=== PATIENT | male | born 1970 | race African-American/Black ===

== ENCOUNTER 2019-04-06 15:37 | Inpatient (IN) | payer MEDICAID, OTHER ==
[~2019-04-06] VITALS: Ht 170.2 cm; Wt 89.8 kg
[2019-04-06 16:36] LABS: Basophils # (auto) 0 uL; Basophils % (auto) 1.3 % (0.0-2.0); Eosinophils # (auto) 0.1 uL; Eosinophils % (auto) 2.5 % (0.0-7.0); Hematocrit 40.8 % (41.0-53.0); Hemoglobin 13.5 g/dL (13.5-17.5); Lymphocytes # (auto) 1.5 uL; Lymphocytes % (auto) 45.9 % (10.0-50.0); Mean Corpuscular Hemoglobin 27.9 pg (28.0-32.0); Mean Corpuscular Hgb Conc. 33.2 g/dL (32.0-36.0); Mean Corpuscular Volume 84.1 fL (80.0-100.0); Monocytes # (auto) 0.3 uL; Neutrophils # (auto) 1.3 uL; Neutrophils % (auto) 40.3 % (37.0-80.0); Nucleated Red Blood Cells % 0.2 %; Platelet Count (auto) 163 10^3/uL (140-450); Red Blood Cells 4.85 10^6/uL (4.5-5.90); Red Cell Distribution Width 14.7 % (11.8-14.3); White Blood Cell 3.3 10^3/uL (4.4-10.8)
[2019-04-06 16:52] LABS: INR 0.96 (0.9-1.15); Partial Thromboplastin Time 27.8 sec (23.64-32.05)
[2019-04-06 16:54] LABS: Albumin 3.6 g/dL (3.4-5.0); Anion Gap 5 (5-15); Blood Urea Nitrogen 17 mg/dL (7-18); Calcium 8.4 mg/dL (8.5-10.1); Carbon Dioxide 25 mmol/L (21-32); Chloride 109 mmol/L (98-107); Glucose 87 mg/dL (74-106); Magnesium 2.4 mg/dL (1.6-2.6); Potassium 4.3 mmol/L (3.5-5.1); Sodium 139 mmol/L (136-145)
[2019-04-06 16:59] LABS: Alanine Aminotransferase 42 U/L (16-61); Alkaline Phosphatase 75 U/L (45-117); Aspartate Aminotransferase 31 U/L (15-37); BUN/Creatinine Ratio 13.2; Bilirubin, Total 0.3 mg/dL (0.2-1.0); GFR African American 76 mL/min; GFR Non-African American 63 mL/min; Total Protein 7.4 g/dL (6.4-8.2)
[2019-04-06] MEDS ORDERED: ASPirin 81 mg TAB PO ONE (17:45)
[2019-04-06] MEDS ORDERED: ONDANSETRON HCL 4 MG/2 ML VIAL IV ONE (17:45)
[2019-04-06] MEDS ORDERED: MORPHINE SULF INJ 2 MG/ML SYRINGE 1ML IV ONE (17:45)
[2019-04-06 17:48] LABS: Alcohol, Urine < 3.0 mg/dL (0-5); Amphetamine Screen, Urine POSITIVE (NEGATIVE); Barbiturate Scree,Urine NEGATIVE (NEGATIVE); Benzodiazephine Screen, Urine NEGATIVE (NEGATIVE); Cannabinoid Screen, Urine POSITIVE (NEGATIVE); Cocaine Screen, Urine NEGATIVE (NEGATIVE); Opiate Scree,Urine NEGATIVE (NEGATIVE); Phencyclidine Screen, Urine NEGATIVE (NEGATIVE)
[2019-04-06 17:52] LABS: Urine Bacteria NONE SEEN /hpf (None Seen); Urine Blood Negative /uL (Negative); Urine Mucus FEW (None Seen); Urine Specific Gravity 1.016 (1.001-1.035); Urine WBC 13 /hpf (0 - 3)
[2019-04-06] MEDS ORDERED: PROMETHAZINE HCL 25 MG/ML 1ML IV ONE (22:30)
[2019-04-06] MEDS ORDERED: MORPHINE SULF INJ 2 MG/ML SYRINGE 1ML IV PRN (23:00)
[2019-04-06] MEDS ORDERED: ALBUTEROL SULF 2.5 MG/0.5ML(0.5%) NEB SOLN NEB PRN (23:00)
[2019-04-06] MEDS ORDERED: NITROGLYCERIN 0.4 MG SL TAB SL PRN (23:00)
[2019-04-06] MEDS ORDERED: ONDANSETRON HCL 4 MG/2 ML VIAL IV PRN (23:00)
[2019-04-06] MEDS ORDERED: ACETAMINOPHEN 500 MG TAB PO PRN (23:00)
[2019-04-06] MEDS ORDERED: LORazepam 0.5 MG TAB PO PRN (23:00)
--- NOTE | 2019-04-07 00:30 | NUR ---
Telemetry admit from ER WILLIE ELAM admitted to Telemetry unit after SBAR received. Patient oriented to BRODIE TOTH RN primary RN, unit, room, bed, and unit policies regarding patient care and visiting hours. Patient now on continuous telemetry monitoring, tele box #37. No s/s of distress or SOB noted. Patient weighed by bedscale and encouraged to call if they need something. All questions and concerns addressed, patient verbalized understanding. Call light left within reach. Will continue to monitor q 1 hr and PRN. Note:
[2019-04-07 01:29] VITALS: BP 112/66
[2019-04-07] MEDS ORDERED: CLOP75TA28 PO (01:47)
[2019-04-07] MEDS ORDERED: CARV3.1240 PO (01:47)
[2019-04-07] MEDS ORDERED: QUET25TA37 PO (01:47)
[2019-04-07] MEDS ORDERED: ASPI81CH43 PO (01:47)
[2019-04-07] MEDS ORDERED: VALS1TAB56 PO (01:47)
[2019-04-07] MEDS ORDERED: ALBU2TAB4 PO (01:47)
[2019-04-07] MEDS ORDERED: LEVO25TA49 PO (01:47)
--- NOTE | 2019-04-07 01:50 | NUR ---
Patient complained of having 7/10 chest pain. No SOB or nausea & vomiting noted. EKG performed. Vitals signs temp 97.6, HR 67, BP 112/66, RR 18, O2 sat 98%. Patient refused to take nitro stating it does not help alleviate chest pain at all and that he knows what medications help him. Gave patient one dose of morphine which helped alleviate chest pain. Will continue to monitor patient.
[2019-04-07 05:00] VITALS: BP 118/71
[2019-04-07] MEDS: ALBUTEROL SULF 2.5 MG/0.5ML(0.5%) NEB SOLN NEB SCH ×3 (06:00→18:00)
--- NOTE | 2019-04-07 06:20 | NUR ---
SCHEDULE MN TX NOT GIVEN. PT DECLINED MN TX. PT IS AWAKE, ALERT AND ORIENTED. PT ON RA, 98% O2 SATS, HR 58BPM, [id number], BS ARE CLEAR TO AUSCULTATION. RESPIRATION IS EVEN AND NON LABORED. SKIN IS DRY AND WARM TO THE TOUCH. PT DENIES SOB OR ANY OTHER RESPIRATORY DISTRESS. NAVNEET ADAMS AT BEDSIDE. WILL CONTINUE TO MONITOR PT.
[2019-04-07] MEDS: LEVOTHYROXINE SODIUM 25 MCG TAB PO SCH (06:25)
[2019-04-07 06:28] LABS: Basophils # (auto) 0 uL; Basophils % (auto) 0.9 % (0.0-2.0); Eosinophils # (auto) 0.1 uL; Eosinophils % (auto) 2.7 % (0.0-7.0); Hemoglobin 13.1 g/dL (13.5-17.5); Lymphocytes # (auto) 1.5 uL; Lymphocytes % (auto) 50.3 % (10.0-50.0); Mean Corpuscular Hemoglobin 28.1 pg (28.0-32.0); Mean Corpuscular Hgb Conc. 33.7 g/dL (32.0-36.0); Mean Corpuscular Volume 83.6 fL (80.0-100.0); Monocytes # (auto) 0.4 uL; Monocytes % (auto) 12.2 % (0.0-12.0); Neutrophils % (auto) 33.9 % (37.0-80.0); Nucleated Red Blood Cells % 0.1 %; Platelet Count (auto) 155 10^3/uL (140-450); Red Blood Cells 4.67 10^6/uL (4.5-5.90)
[2019-04-07 07:10] LABS: BUN/Creatinine Ratio 11.5; Calcium 8.3 mg/dL (8.5-10.1); Potassium 3.9 mmol/L (3.5-5.1)
--- NOTE | 2019-04-07 07:20 | NUR ---
Opening Shift Note Assumed care of patient, awake and alert. No S/S of distress/SOB or pain. Bed in lowest position with call light within reach. Instructed on POC and to call for assist PRN, will continue to monitor for changes.
--- NOTE | 2019-04-07 07:24 | NUR ---
CLOSING NOTE ENDORSED CARE TO DAY SHIFT RN. PATIENT LAYING IN BED RESTING. NO S/S OF SOB OR DISTRESS NOTED. PATIENT DENIES ANY PAIN AT THIS TIME AND STATES HE FEELS FINE.
[2019-04-07] MEDS: LOSARTAN POTASSIUM 25 MG TAB PO SCH (09:57)
[2019-04-07] MEDS: CLOPIDOGREL BISULFATE 75 MG TAB PO SCH (09:57)
[2019-04-07] MEDS: ASPirin-EC 81 mg tab PO SCH (09:58)
[2019-04-07] MEDS ORDERED: CARVEDILOL 3.125 MG TAB PO SCH (10:00)
[2019-04-07] MEDS ORDERED: SODIUM CHLORIDE 0.9% 1,000 ML IV SCH (11:14)
--- NOTE | 2019-04-07 11:50 | NUR ---
2- IV insertion IV access obtained, via clean sterile technique by inserting 20 gauge catheter at LFA & RFA. IV's secured properly. No trauma to site. Patient tolerated well.
--- NOTE | 2019-04-07 12:10 | NUR ---
SCHEDULED MN TX NOT GIVEN. PT REFUSED MN TX. PT DENIES SOB OR ANY OTHER RESPIRATORY DISTRESS. PT ON RA, 98% O2 SATS, HR 58BPM, [id number], BS ARE CLEAR TO AUSCULTATION. DESIREE GARCIA WAS INFORMED. WILL CONTINUE TO MONITOR PT.
--- NOTE | 2019-04-07 12:15 | NUR ---
PATIENT TAKEN DOWN TO COMPUTER SCIENCE INSTRUCTOR. NO DISTRESS NOTED.
[2019-04-07] MEDS ORDERED: IOHEXOL 350 MG/ML 100ML IJ ONE ×2 (12:25→13:35)
[2019-04-07] MEDS ORDERED: LIDOCAINE 2%HCL (LOCAL ANESTH.) INJ 20ML MDV ONE (12:25)
[2019-04-07] MEDS ORDERED: fentaNYL CITRATE 100 MCG/2 ML VL ONE (12:35)
[2019-04-07] MEDS ORDERED: ANGIOMAX 250 MG VIAL IV ONE ×2 (12:35→13:43)
[2019-04-07] MEDS ORDERED: MIDAZOLAM HCL 1MG/1ML-2 ML VIAL ONE (12:35)
[2019-04-07] MEDS ORDERED: SODIUM CHL 0.9% 0 ML ONE (12:36)
[2019-04-07] MEDS ORDERED: FAMOTIDINE (10MG/ML) 2ML VL IV ONE (12:38)
[2019-04-07] MEDS ORDERED: diphenhdrAMINE HCL 50 MG/1 ML VL ONE (12:40)
[2019-04-07] MEDS ORDERED: methylPREDNISolone SOD SUCC 125 MG/2 ML VL ONE (12:40)
[2019-04-07] MEDS ORDERED: ONDANSETRON HCL 4 MG/2 ML VIAL ONE (12:56)
[2019-04-07] MEDS ORDERED: ADENOSINE 90 MG/30 ML INJ IV ONE ×2 (13:04→13:16)
[2019-04-07] MEDS ORDERED: SODIUM CHL 0.9% 50 ML ONE ×3 (13:05→13:43)
--- NOTE | 2019-04-07 15:15 | NUR ---
Patient back to room. Assessed groin insertion site, no blood no hematoma. Patient instructed up time to be at 1530. Patient verbalized understanding. Will continue to monitor.
--- NOTE | 2019-04-07 15:30 | NUR ---
Patient groin insertion site assessed no changes noted, no bleeding or hematoma.
[2019-04-07 16:01] VITALS: BP 117/61
--- NOTE | 2019-04-07 16:13 | NUR ---
Paged Dr. Ratliff. Patient complains of chest pain 7/10 radiating to left shoulder. Awaiting call back.
--- NOTE | 2019-04-07 16:15 | NUR ---
Lashon Bowman verifying EKG. New order received, Morphine 2mg IV PRN Q4hr. Will follow as ordered.
--- NOTE | 2019-04-07 16:46 | NUR ---
Groin site assessed. No changes noted, no bleeding no hematoma.
[2019-04-07 17:00] VITALS: BP 117/53
[2019-04-07] MEDS: MORPHINE SULF INJ 2 MG/ML SYRINGE 1ML IV PRN ×2 (17:19→21:08)
--- NOTE | 2019-04-07 18:20 | NUR ---
Respiratory note: PT SEEN FOR SCHEDULED MED NEB TX AT 1820. PT REFUSED HIS TREATMENT AT THIS TIME STATING THAT HE DOESN'T NEED THEM. PT WAS TALKING ON THE PHONE WITH NO DISTRESS NOTED. HR 59 RR 18 POX 96% ON ROOM AIR. PT AWARE TO CALL FOR RT IF ANY DISTRESS OCCURS.
--- NOTE | 2019-04-07 18:31 | NUR ---
Patient groin site assessed. No changes noted, no bleeding no hematoma.
--- NOTE | 2019-04-07 18:34 | NUR ---
Patient sitting up in bed with no s/s of distress. Patient states pain better now at 6/10. Bed in lowest position with call light within reach. Will continue to monitor.
--- NOTE | 2019-04-07 19:00 | NUR ---
Opening Shift Note Assumed care of patient, awake and alert. Patient verbalized mild chest pain that has decreased. No bleeding noted on operative site. Instructed on POC and to call for assist PRN, will continue to monitor for changes Q1hr and PRN. Side rails up x2. Bed locked in lowest position. Call light within reach.
[2019-04-07] MEDS: QUEtiapine FUMARATE 100 MG TAB PO SCH (21:08)
[2019-04-07 21:59] VITALS: BP 119/67
--- NOTE | 2019-04-08 01:26 | NUR ---
Rounds Patient in bed asleep with no signs of distress/sob/pain. Will continue to monitor Q1H PRN.
[2019-04-08 05:58] VITALS: BP 111/62
[2019-04-08] MEDS: ALBUTEROL SULF 2.5 MG/0.5ML(0.5%) NEB SOLN NEB SCH ×3 (06:00→18:00)
--- NOTE | 2019-04-08 06:06 | NUR ---
SCHEDULED MN TX NOT GIVEN. PT REFUSED MN TX. PT IS ON RA, 97% O2 SATS, HR 61 BPM, [id number], BS ARE CLEAR TO AUSCULTATION, RESPIRATION IS EVEN AND NON LABORED. SKIN IS DRY AND WARM TO THE TOUCH. NO SOB OR ANY OTHER RESPIRATORY DISTRESS NOTED. HORTENCIA HULL WAS INFORMED. WILL CONTINUE TO MONITOR PT.
[2019-04-08] MEDS: LEVOTHYROXINE SODIUM 25 MCG TAB PO SCH (06:49)
--- NOTE | 2019-04-08 07:25 | NUR ---
Endorsed care to day shift RN.
--- NOTE | 2019-04-08 07:30 | NUR ---
OPENING SHIFT NOTE RECEIVED REPORT FROM [facility] NURSE, ASSUMED CARE OF PATIENT. AT THIS TIME PATIENT IS RESTING IN BED WITH EYES CLOSED, NO S/S OF DISTRESS, RESPIRATIONS EVEN AND UNLABORED. BED IS IN LOW POSITION, BRAKES APPLIED, BED RAILS UP X 2, AND CALL LIGHT WITHIN REACH. CONTINUING TO MONITOR PATIENT Q1 HR AND PRN
[2019-04-08 09:00] VITALS: BP 112/70
[2019-04-08] MEDS: ASPirin-EC 81 mg tab PO SCH (09:51)
[2019-04-08] MEDS: CLOPIDOGREL BISULFATE 75 MG TAB PO SCH (09:51)
[2019-04-08] MEDS: LOSARTAN POTASSIUM 25 MG TAB PO SCH (09:51)
[2019-04-08] MEDS: MORPHINE SULF INJ 2 MG/ML SYRINGE 1ML IV PRN (09:52)
--- NOTE | 2019-04-08 10:57 | NUR ---
AT BEDSIDE DR HASSAN AT BEDSIDE
--- NOTE | 2019-04-08 11:43 | NUR ---
SPOKE WITH FAMILY PATIENT FAMILY CONCERNED FOR PATIENT, FAMILY ADVISED OF FURTHER ROUTE SALES DRIVER INTERVENTION
--- NOTE | 2019-04-08 12:02 | NUR ---
SCHEDULED MN TX NOT GIVEN. PT DECLINED MN TX AGAIN. PT ON RA, 97% O2 SATS, HR 58 BPM, RR17 BPM, BS ARE CLEAR TO AUSCULTATION. RESPIRATION IS EVEN AND NON LABORED. PT DENIES SOB OR ANY OTHER RESPIRATORY DISTRESS. DESIREE GARCIA WAS NOTIFIED. WILL CONTINUE TO MONITOR PT.
[2019-04-08 12:55] VITALS: BP 129/73
--- NOTE | 2019-04-08 13:30 | NUR ---
PATIENT UPSET PATIENT SEEN CRYING IN ROOM, STATES HE IS OVERWHELMED AND UPSET, DOES NOT FEEL READY TO DC. MD DE LA CRUZ NOTIFIED
[2019-04-08 13:47] VITALS: BP 112/70
--- NOTE | 2019-04-08 14:45 | NUR ---
SUICIDAL IDEATIONS PATIENT HAS GROWN INCREASINGLY AGITATED, VISUALLY CRYING. MYSELF AND POLINA GOULD ENTER PATIENTS ROOM TO SPEAK WITH HIM REGARDING HIS CARE WHEN PATIENT VERBALIZED SUICIDAL IDEATIONS WITH A PLAN TO WALK INTO TRAFFIC IF HE IS DISCHARGED.
--- NOTE | 2019-04-08 14:53 | NUR ---
DR JONO FITZGERALD, DR FITZGERALD AND IMMEDIATELY RETURNED CALLMD UPDATED TO PATIENT CHANGES, DC ORDER CANCELLED AND TELEPSYCH ORDER PLACED FOR PATIENT. PATIENT GIVEN PRN ANXIETY MEDICATION
--- NOTE | 2019-04-08 15:00 | NUR ---
TELEPSYCH CALLED CALLED AND ROUTINE CONSULT PLACED
[2019-04-08 16:26] VITALS: BP 115/77
--- NOTE | 2019-04-08 16:26 | NUR ---
assessment re: dc planning and meds Patient is a 48 year old male who is alert and oriented. Patient is anxious due to not wanting to go back to the room he rents. Patient informed me he was at the [facility] where he was also kicked out of for medical reason per patient. Patient informed me he needs new prescriptions for his psych medications. Patient informed me he had suicidal ideations in January. Patient informed me he has no suicidal ideation now and that was at 11am. At this time once patient found out he was being discharged he stated he has suicidal ideations now. I asked patient if he had a plan and he stated "discharge me and you will find out". Patient informed me he is Bipolar and Schitzo effective. Patient informed me his emergency contact is his mother Lorenzo [phone]. Patient will need a tele psych evaluation. Addendum: 04/09/19 at 1641 by Nora CRANE Amended: Links added.
--- NOTE | 2019-04-08 18:55 | NUR ---
PT CHECKED FOR SCHEDULED TX. PT DENIES NEEDED FOR TX. PT IS AWARE TO PAGE IF TX IS NEEDED OR BECOMES SOB. PT IS RESTING WITH NO ACUTE DISTRESS NOTED.
--- NOTE | 2019-04-08 19:21 | NUR ---
Opening Shift Note Assumed care of patient asleep with breathing even and unlabored. Will continue to monitor for changes Q1hr and PRN.
[2019-04-08 22:00] VITALS: BP 111/69
[2019-04-08] MEDS: QUEtiapine FUMARATE 100 MG TAB PO SCH (22:15)
--- NOTE | 2019-04-08 23:41 | NUR ---
Assumed care of patient who is resting in bed with eyes closed. Easily arouses to voice. Denies pain at this time. No s/s of SOB or distress noted. Dressing to right groin is CDI. Surrounding area is soft to palpation. Pedal pulse is intact. Call sparks is within reach. Patient encouraged to call for assistance when needed. Will continue to monitor for changes PRN.
--- NOTE | 2019-04-08 23:43 | NUR ---
Milk provided per patient request.
--- NOTE | 2019-04-09 02:45 | NUR ---
IV in left hand dislodged. Catheter is fully intact and pressure dressing applied. patient tolerated well.
[2019-04-09 05:00] VITALS: BP 96/51
[2019-04-09] MEDS: LEVOTHYROXINE SODIUM 25 MCG TAB PO SCH (06:33)
[2019-04-09] MEDS: ALBUTEROL SULF 2.5 MG/0.5ML(0.5%) NEB SOLN NEB SCH (06:38)
--- NOTE | 2019-04-09 06:39 | NUR ---
Respiratory note: PT REFUSING SCHEDULED MED NEB TX, STATES HE DOES NOT NEED THEM NOR WANT TO TAKE THEM WHILE HE IS HERE. NO DISTRESS NOTED. PT DENIES SOB OR DIFF BREATHING. PT AND RN AWARE TO HAVE RT PAGED IF NEEDED. HR 62 RR 16 SPO2 100% ON RA BREATH SOUNDS ARE CLEAR T/O.
--- NOTE | 2019-04-09 07:30 | NUR ---
OPENING SHIFT NOTE RECEIVED REPORT FROM [facility] NURSE, ASSUMED CARE OF PATIENT. PATIENT IS A&OX4 WITH NO C/O PAIN OR DISTRESS AT THIS TIME. BED IS IN LOW POSITION, BRAKES APPLIED, BED RAILS UP X2, AND CALL LIGHT WITHIN REACH. TELE PSYCH MACHINE AT BEDSIDE. EDUCATED PATIENT RUBBER GASKET INSPECTOR TRIMMER LIGHT USE PRN AND POC, PATIENT VERBALIZED UNDERSTANDING. CONTINUING TO MONITOR PATIENT Q1 HR AND PRN
--- NOTE | 2019-04-09 08:22 | NUR ---
REPORT GIVEN TO TELE PSYCHIATRIST
--- NOTE | 2019-04-09 08:28 | NUR ---
TELE PSYCH PATIENT CURRENTLY BEING SEEN
--- NOTE | 2019-04-09 08:45 | NUR ---
REPORT FROM PSYCH REPORT RECEIVED FROM PSYCH, RECOMMENDS PSYCH PLACEMENT
[2019-04-09 09:00] VITALS: BP 117/74
--- NOTE | 2019-04-09 09:07 | NUR ---
IT COMPLIANCE MANAGER [facility] IT COMPLIANCE MANAGER VERENA CARMONA CAME TO UNIT STATING PATIENT CONTINUES TO CALL CCRT STATING SUICIDAL IDEATIONS, POLINA THORNE
[2019-04-09] MEDS ORDERED: QUEtiapine FUMARATE 100 MG TAB PO SCH (10:00)
--- NOTE | 2019-04-09 10:00 | NUR ---
AT BEDSIDE DR DE LA CRUZ AT PATIENTS BEDSIDE
[2019-04-09] MEDS: LOSARTAN POTASSIUM 25 MG TAB PO SCH (10:12)
[2019-04-09] MEDS: ASPirin-EC 81 mg tab PO SCH (10:12)
[2019-04-09] MEDS: CLOPIDOGREL BISULFATE 75 MG TAB PO SCH (10:12)
--- NOTE | 2019-04-09 12:00 | NUR ---
re-assessment Per tele psych eval patient needs inpatient psych placement. Patient is willing to go voluntary. Kina MANLEY is working on psych placement. Addendum: 04/09/19 at 1642 by Nora CRANE Amended: Links added.
[2019-04-09 12:56] VITALS: BP 124/74
[2019-04-09 17:00] VITALS: BP 120/72
--- NOTE | 2019-04-09 17:14 | NUR ---
Discharge planning per consult, patient is volunteering to commit to a mental health facility. Referral faxed to [facility], [facility], and [facility]. [facility] is not contracted. Acceptance pending with the other two facilities. Will follow up in the am. Addendum: 04/09/19 at 1716 by ARELY CAMPBELL Amended: Links added.
--- NOTE | 2019-04-09 19:40 | NUR ---
Opening Shift Note Assumed care of patient, awake and alert. No S/S of distress/SOB or pain. Instructed on POC and to call for assist PRN, will continue to monitor for changes Q1hr and PRN.
[2019-04-09] MEDS: QUEtiapine FUMARATE 100 MG TAB PO SCH (21:34)
[2019-04-09 22:00] VITALS: BP 117/70
--- NOTE | 2019-04-09 22:00 | NUR ---
Scheduled medications administered. Patient provided milk and cee crackers per requests. Encouraged to call for assistance when needed.
--- NOTE | 2019-04-10 | NUR ---
ROUNDS Patient is resting in bed on left side. No distress noted. Denies pain at this time. Encouraged to call for assistance when needed.
--- NOTE | 2019-04-10 02:39 | NUR ---
ROUNDS Patient resting in bed with eyes closed. Respirations are even and nonlabored. No distress noted. Patient states he is "doing ok". Encouraged to call for assistance when needed.
[2019-04-10 05:00] VITALS: BP 105/61
--- NOTE | 2019-04-10 05:57 | NUR ---
Received call from tele electronic device monitor reports heart rate of 46. Patient is awake and alert. No c/o chest pain. V/S: temp: 97.8, HR: 65, RR: 18, BP: 105/61 Spo2: 98% on room air. Temperature in room increased per patient request. Second blanket, milk and cee crackers provided per patient requests. Encouraged to call for assistance when needed. Will continue to monitor PRN for changes.
[2019-04-10] MEDS: LEVOTHYROXINE SODIUM 25 MCG TAB PO SCH (06:27)
--- NOTE | 2019-04-10 07:45 | NUR ---
Opening Note Assumed care of patient, he is A & O x4, no complaints at this time, no s/s of distress. POC discussed. When asked if patient has any thoughts of hurting himself or anyone else at this time? Patient states "no, I am just depressed." Patient is otherwise ambulatory, bed is in low, locked position, call light within reach. POC discussed with patient, he is aware he is waiting for placement. Will continue to monitor Q1h and PRN.
[2019-04-10 09:00] VITALS: BP 108/63
[2019-04-10] MEDS: LOSARTAN POTASSIUM 25 MG TAB PO SCH (10:00)
[2019-04-10] MEDS: CLOPIDOGREL BISULFATE 75 MG TAB PO SCH (10:20)
[2019-04-10] MEDS: ASPirin-EC 81 mg tab PO SCH (10:20)
--- NOTE | 2019-04-10 10:20 | NUR ---
Patient refused blood pressure medication.
--- NOTE | 2019-04-10 10:26 | NUR ---
D/C Planning Per consult for voluntary Psych placement. Contacted [facility] at 9:30am Ph: ( [phone]) Fax: ( [phone]) faxed medical records. Per Marquita from [facility] in-take is reviewing referral. Followed up call to [facility] spoke to Alisa at 10:23am referral is still pending for acceptance. Contacted [facility] Ph: Fax: ) faxed Medical records spoke to Catherine in-take department. Per Catherine from [facility] there is no beds available. Contacted [facility] Ph: ) spoke to Benji. Benji Advised they only take Pt who are in the ER and are unable to take Pt who are admitted to the hospital due to Medial not covering the stay and refused to provided me with a fax number because they will not be able to review referral due to his admission stay. Contacted [facility] Ph: ) Fax: ( [phone]) faxed medical records. Per Jm from [facility] there is no beds available. Contacted [facility] Ph: ) Fax: ) faxed medical records. Per Williams from [facility] there is no beds available.
[2019-04-10 13:00] VITALS: BP 117/74
--- NOTE | 2019-04-10 14:51 | NUR ---
Nutrition Assessment Notes please see attached link for complete assessment Est. Needs ABW 79 [id number] kcal (23-25 kcal/kgBW), 79-86 gms pro (1.0-1.1 gms/kgBW). Will continue to monitor pertinent labs and reassess nutrient need prn Addendum: 04/10/19 at [address] Amended: Links added.
[2019-04-10 17:24] VITALS: BP 129/78
--- NOTE | 2019-04-10 19:52 | NUR ---
Explained to patient that based off his tele-psych assessment and my interview with patient, he is a candidate for 5150 hold. Per Patient, he is still very depressed and has thoughts of hurting himself, though they are not as "thought out" as yesterday. He told MD that he planned on walking into traffic if he was discharged. Per Patient, he was recently hospitalized in January after he overdosed on medication and his heart stopped. He was recently an inpatient at [facility] and [facility]. 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 He is currently homeless and lost his bed at [facility] when he reported chest pain and was admitted at [facility]. Patient was positive for Amphetamines as well on admission along with cannabis. Patient has bipolar disorder and has not been taking his medications prior to admission for over 1 month. MD Aguilar recommended inpatient psychiatric hospitalization and patient agreed but patient also meets criteria for 5150 (consult #: [id number]). Patient is currently unsupervised in room and I am deeply concerned patient will hurt himself if discharged and may do so while in room unless he is being monitored by a sitter. I believe patient meets criteria for 5150 hold as he is a danger to himself.
--- NOTE | 2019-04-10 19:54 | NUR ---
Patient wanted me to explain to his mother why I am writing a 5150 hold on patient. After obtaining his permission to speak to her, I explained what he had told me and that based off it, he met criteria for involuntary hold. Mother was upset and wanted to speak to [employer]. I provided the number and extension to her.
--- NOTE | 2019-04-10 19:56 | NUR ---
Patient is very upset that I am writing a 5150 hold. Patient told me to stay away from him because I am "a racist white man taking out his rage on others. And it's not going to be me." Patient informed that based off of what he said to me, he meets criteria for 5150 hold as he is a danger to himself. Patient upset, not regarding hold, but regarding the fact that no one had decided to write a hold prior to this and that "who are you to just walk in here and say I need a 5150." I explained to him again that I was authorized by [facility] to write 5150 holds. Patient did not accept this information, but did agree he should be placed on one. "I should have been placed on one yesterday when I had an active plan and they did not do one then!" I have step out of room to deescalate situation.
--- NOTE | 2019-04-10 19:58 | NUR ---
Spoke to Freezing Machine Operator. Patient's mother called and was confused as to why a 5150 is being written now. I informed house detective of what patient had told me. She differed to my opinion and agreed to patient being moved to room with a sitter.
--- NOTE | 2019-04-10 20:00 | NUR ---
Patient refusing to allow me to assess him. "I don't want you near me. You're a racist."
--- NOTE | 2019-04-10 20:04 | NUR ---
Per Ladan charge nurse RN, patient will be moved to room 288a with a sitter.
--- NOTE | 2019-04-10 20:07 | NUR ---
On assessment, patient will not be placed on 5150 hold because he wishes to voluntarily enter a psychiatric facility and 5150 hold may limit facilities available to him. However, I am very concerned that patient is still a harm to self and recommended that he be placed with a sitter to monitor in case he tries to harm himself while in hospital.
--- NOTE | 2019-04-10 20:08 | NUR ---
Spoke to Dairy Machine Operator Farmworker Toyin and informed her that I will not be writing a 515 so long as patient can be placed with a sitter because I am concerned that even if he is voluntarily willing to go to a psychiatric facility he may attempt to hurt himself while here. Addendum: 04/10/19 at 2031 by MINESH GARCIA RN 5150 not "515"
--- NOTE | 2019-04-10 20:13 | NUR ---
Explained to patient that based solely off his willingness to enter a psychiatric facility voluntarily, I will not be writing a 5150 hold but that he would need to be moved to a room with a sitter because he strongly meets criteria as a risk to harm himself. I specifically clarified that patient was NOT on 5150 hold and that having spoken to charge nurse and manager warehouse, I was satisfied enough to not write a 5150 hold so long as he is with a sitter so long as he continued to wish to voluntarily enter a psychiatric facility. Patient stated he still was but was still upset that I wanted to write the hold in the first place. I explained once more that he met the criteria based off what he told me.
--- NOTE | 2019-04-10 20:15 | NUR ---
Patient has stated he wants nothing further to do with me. DESIREE Reynaga and DESIREE Hoffmann will be helping patient move to 288a.
--- NOTE | 2019-04-10 20:28 | NUR ---
Patient moved to room 288a. Report given to DESIREE Christy. Jaelyn notified that patient refused to let me assess him.
--- NOTE | 2019-04-10 20:30 | NUR ---
assumed pt. from rn macey, pt. awake, alert and oriented, no c/o pain, behavior appropriate, no sob.
[2019-04-10] MEDS: QUEtiapine FUMARATE 100 MG TAB PO SCH (21:17)
[2019-04-10 21:55] VITALS: BP 127/85
--- NOTE | 2019-04-11 03:05 | NUR ---
pt. wants to sign out and go home, he wants to sign ama paper, called cn and cn called liquid yeast supervisor.
--- NOTE | 2019-04-11 03:10 | NUR ---
pt. states," I just want to rest and sleep i will stay in another room" pt. transferred to rm. 285b, with sitter at bedside for pt. safety.
[2019-04-11] MEDS: LEVOTHYROXINE SODIUM 25 MCG TAB PO SCH (06:06)
[2019-04-11 06:10] VITALS: BP 116/61
[2019-04-11 09:00] VITALS: BP 120/65
--- NOTE | 2019-04-11 10:03 | NUR ---
PT REPORTS CHEST PAIN RADIATING TO NECK AND ARM. 02/05. NO SOB OR DIAPHORESIS NOTED. PT REPORTS HE WOULD LIKE TO SPEAK WITH CHARGE AND PT RIGHTS ADVOCATE. VITALS: 99.7, HR 74, RR 19, 02 99, BP 142/78. STAT ECG DONE, READS 72 BPM NSR. PATIENT REPORTS IT'S THE SAME CHEST PAIN HE HAS HAD SINCE ADMISSION. CALLED PBX AND PAGED DR DE LA CRUZ, AWAITING CALL BACK.
--- NOTE | 2019-04-11 10:06 | NUR ---
PT REPORTS HE DOES NOT WANT SUBLINGUAL NITRO, HE REPORTS IT GIVES HIM A HEADACHE. PT REQUESTING MORPHINE.
--- NOTE | 2019-04-11 10:11 | NUR ---
SPOKE WITH PAMELA, NOTIFIED HER PATIENT WOULD LIKE TO SPEAK WITH HER, PAMELA REPORTS SHE WILL BE IN TO SEE PATIENT.
[2019-04-11] MEDS: ASPirin-EC 81 mg tab PO SCH (10:28)
[2019-04-11] MEDS: LOSARTAN POTASSIUM 25 MG TAB PO SCH (10:31)
[2019-04-11] MEDS: MORPHINE SULF INJ 2 MG/ML SYRINGE 1ML IV PRN ×2 (10:32→22:17)
[2019-04-11] MEDS: CLOPIDOGREL BISULFATE 75 MG TAB PO SCH (10:32)
--- NOTE | 2019-04-11 10:33 | NUR ---
warehouse worker 2nd shift rn reports she documented giving levothyroxine but reports she did not actually give medication as patient was trying to rest. she reported pt still needs it.
[2019-04-11] MEDS ORDERED: NITROGLYCERIN 0.2MG/HR TOPICAL PATCH TD ONE (11:15)
--- NOTE | 2019-04-11 11:21 | NUR ---
Dr Alexander saw patient. MD notified of chest pain and ECG results. MD aware, new orders for troponin and nitro patch.
[2019-04-11 13:00] VITALS: BP 105/54
--- NOTE | 2019-04-11 14:17 | NUR ---
PT IV LEAKING WHEN FLUSHED. IV DC'D, PRESSURE DRESSING APPLIED. NEW IV STARTED LEFT UPPER ARM 22 G, INSERTED ON SECOND ATTEMPT USING STERILE TECHNIQUE. PT TOLERATED PROCEDURE WELL, WILL CONTINUE TO MONITOR.
--- NOTE | 2019-04-11 14:23 | NUR ---
PT REPORTS HE IS CONSTIPATED, NO PRN MED AVAILABLE. CALLED PBX AND PAGED DR DE LA CRUZ, AWAITING CALL BACK.
--- NOTE | 2019-04-11 14:29 | NUR ---
DR DE LA CRUZ CALLED BACK, NEW ORDERS FOR MILK OF MAGNESIA.
[2019-04-11] MEDS ORDERED: MILK OF MAGNESIA 30ML SUSP PO ONE (14:30)
[2019-04-11 17:00] VITALS: BP 111/70
[2019-04-11 22:00] VITALS: BP 103/65
[2019-04-11] MEDS: QUEtiapine FUMARATE 100 MG TAB PO SCH (22:17)
[2019-04-12 05:00] VITALS: BP 107/73
[2019-04-12] MEDS: LEVOTHYROXINE SODIUM 25 MCG TAB PO SCH (05:15)
[2019-04-12] MEDS: MORPHINE SULF INJ 2 MG/ML SYRINGE 1ML IV PRN ×3 (05:15→21:48)
--- NOTE | 2019-04-12 07:53 | NUR ---
Opening Shift Note Assumed care of patient, asleep but easily aroused. No S/S of distress/SOB or pain. Will follow up with instructions on POC and to call for assist PRN once patient is awake. Will continue to monitor for changes Q1hr and PRN. Sitter at bedside for safety.
[2019-04-12 08:00] VITALS: BP 98/50
[2019-04-12] MEDS: ASPirin-EC 81 mg tab PO SCH (09:45)
[2019-04-12] MEDS: CLOPIDOGREL BISULFATE 75 MG TAB PO SCH (09:45)
[2019-04-12] MEDS: NITROGLYCERIN 0.2MG/HR TOPICAL PATCH TD SCH (09:48)
[2019-04-12] MEDS: LOSARTAN POTASSIUM 25 MG TAB PO SCH (09:48)
[2019-04-12 12:43] VITALS: BP 110/67
[2019-04-12 16:36] VITALS: BP 116/68
--- NOTE | 2019-04-12 19:24 | NUR ---
pm note pt resting in bed, talking on the phone. no signs of distress. bed in low position. call light with in reach. got pt a warm pack for slight pain in his leg. will continue to monitor.
[2019-04-12] MEDS: QUEtiapine FUMARATE 100 MG TAB PO SCH (21:47)
[2019-04-12 22:00] VITALS: BP 110/66
--- NOTE | 2019-04-12 22:10 | NUR ---
Received report from DESIREE Campos Will continue to monitor.
--- NOTE | 2019-04-12 22:10 | NUR ---
transferrred pt to room 217B gave report to DESIREE Stevens
[2019-04-13 05:01] VITALS: BP 108/60
[2019-04-13] MEDS: LEVOTHYROXINE SODIUM 25 MCG TAB PO SCH (07:03)
[2019-04-13 09:00] VITALS: BP 121/70
[2019-04-13] MEDS: NITROGLYCERIN 0.2MG/HR TOPICAL PATCH TD SCH (10:00)
[2019-04-13] MEDS: CLOPIDOGREL BISULFATE 75 MG TAB PO SCH ×2 (12:06→12:10)
[2019-04-13] MEDS: LOSARTAN POTASSIUM 25 MG TAB PO SCH (12:08)
[2019-04-13] MEDS: ASPirin-EC 81 mg tab PO SCH (12:09)
[2019-04-13 13:00] VITALS: BP 160/75
[2019-04-13] MEDS: MORPHINE SULF INJ 2 MG/ML SYRINGE 1ML IV PRN (14:59)
[2019-04-13 17:00] VITALS: BP 118/65
[2019-04-13] MEDS ORDERED: LACTULOSE 20Gm/30ML SOLN PO ONE (19:00)
--- NOTE | 2019-04-13 19:00 | NUR ---
Opening Shift Note Assumed care of patient, awake and alert.Sitter on bedside. No S/S of distress/SOB or pain. Instructed on POC and to call for assist PRN, will continue to monitor for changes Q1hr and PRN.
[2019-04-13 22:00] VITALS: BP 124/75
[2019-04-13] MEDS: LACTULOSE 20Gm/30ML SOLN PO SCH (22:00)
[2019-04-13] MEDS: QUEtiapine FUMARATE 100 MG TAB PO SCH (22:17)
[2019-04-14 05:00] VITALS: BP 100/53
[2019-04-14] MEDS: LEVOTHYROXINE SODIUM 25 MCG TAB PO SCH (06:55)
--- NOTE | 2019-04-14 07:45 | NUR ---
Opening Shift Note Assumed care of patient, awake and alert. No S/S of distress/SOB or pain. Instructed on POC and to call for assist PRN, will continue to monitor for changes Q1hr and PRN. Bed locked in lowest position with two side rails up and call light in reach. Sitter at bedside.
[2019-04-14 08:00] VITALS: BP 111/60
[2019-04-14 09:00] VITALS: BP 111/60
[2019-04-14] MEDS: LACTULOSE 20Gm/30ML SOLN PO SCH ×2 (10:00→21:38)
[2019-04-14] MEDS: LOSARTAN POTASSIUM 25 MG TAB PO SCH (10:00)
--- NOTE | 2019-04-14 10:35 | NUR ---
PATIENT REFUSING MORNING MEDICATIONS LOSARTAN AND LACTULOSE.10
--- NOTE | 2019-04-14 10:40 | NUR ---
DR JONO BEGUM
[2019-04-14] MEDS: CLOPIDOGREL BISULFATE 75 MG TAB PO SCH (10:46)
[2019-04-14] MEDS: ASPirin-EC 81 mg tab PO SCH (10:47)
[2019-04-14 13:00] VITALS: BP 118/75
--- NOTE | 2019-04-14 14:49 | NUR ---
Nutrition Follow-up Notes Wt.: 89.9 kg as of yesterday. Pt's asleep, no immediate family member at bedside during rounds this morning. Pt's no signs of distress noted earlier, currently on Cardiac: 2 gms Na, Low Chol, Low Fat diet diet with adequate PO intake aeb 95% ave. consumed meals (x7) in last 3 days. Noted pt's for active Tele Psych consult. Est. Needs ABW 79 [id number] kcal (23-25 kcal/kgBW), 79-86 gms pro (1.0-1.1 gms/kgBW). Will continue to monitor pertinent labs and reassess nutrient need prn Labs: No new labs since 04/08/19 Cr 1.35 H; 04/08/19 Cl 108 H, Ca 8.3 L Skin: Nolan scale 21, low risk, pt's right groin incision dry and intact per tech intern. GI: Pt's no bowel activity since 04/06/19 per tech intern. Noted pt's on Lactulose PES: Altered nutrition related lab values r/t current/chronic medical condition aeb hypocalcemia, elev creat Obesity r/t food intake more than body requirement aeb 133% IBW, BMI 31.0 kg/m2 and increased body adiposity Will continue to monitor PO intake, skin status, pertinent labs and weight trend. F/u in 3 to 5 days. Rec.: 1.) Continue close supervision during meals. 2.) Continue monitoring pertinent labs prn. 3.) Refer pt to RD for further nutrition education and weight monitoring upon discharge. 4.) Continue current plan of care.
--- NOTE | 2019-04-14 15:48 | NUR ---
D/ C Planning Followed up call and refaxed referral to [facility], [facility], [facility] and [facility]. Spoke to multiple representatives and they all stated there is no beds available at the moment.
[2019-04-14 16:57] VITALS: BP 148/82
[2019-04-14] MEDS: HYDROcodone-ACET 7.5/325MG TAB PO PRN (20:25)
[2019-04-14 21:30] VITALS: BP 119/72
[2019-04-14] MEDS: QUEtiapine FUMARATE 100 MG TAB PO SCH (21:38)
[2019-04-15 05:00] VITALS: BP 106/56
[2019-04-15] MEDS: LEVOTHYROXINE SODIUM 25 MCG TAB PO SCH (07:01)
[2019-04-15 09:00] VITALS: BP 102/59
[2019-04-15] MEDS: LOSARTAN POTASSIUM 25 MG TAB PO SCH (10:00)
--- NOTE | 2019-04-15 10:00 | NUR ---
Patient refused Losartan stated "blood pressure to low" B/P 102/59.
[2019-04-15] MEDS: LACTULOSE 20Gm/30ML SOLN PO SCH ×2 (10:48→21:19)
[2019-04-15] MEDS: ASPirin-EC 81 mg tab PO SCH (10:49)
[2019-04-15] MEDS: CLOPIDOGREL BISULFATE 75 MG TAB PO SCH (10:49)
[2019-04-15 13:00] VITALS: BP 124/82
--- NOTE | 2019-04-15 15:50 | NUR ---
D/ C Planning Followed up call and re-faxed referral to [facility], [facility], [facility] and [facility]. Spoke to multiple representatives and they all stated there is no beds available at the moment. Informed Dr. Tate
[2019-04-15 17:00] VITALS: BP 127/74
--- NOTE | 2019-04-15 20:30 | NUR ---
Patient verbalizes that he has no active plans to commit suicide or thoughts of harming himself at this time. Patient is resting in bed with no signs of distress or sob. Sitter at bedside.
[2019-04-15] MEDS: QUEtiapine FUMARATE 100 MG TAB PO SCH (21:19)
[2019-04-15 21:53] VITALS: BP 145/83
[2019-04-16 05:00] VITALS: BP 125/89
[2019-04-16] MEDS: LEVOTHYROXINE SODIUM 25 MCG TAB PO SCH (06:35)
--- NOTE | 2019-04-16 06:40 | NUR ---
I was unable to find new placement for new IV for 72 hour IV policy. KATT Pabon also assessed patient for IV placement and unsuccessful. Will endorse to dayshift.
[2019-04-16 06:58] VITALS: BP 130/80
--- NOTE | 2019-04-16 07:00 | NUR ---
PATIENT COMPLAINING OF CHEST PAIN 3 OUT OF 10 AND RISING. NO MEDS ORDERED FOR CHEST PAIN. VITALS TAKEN, EKG COMPLETED AND HOSPITALIST PAGED.
--- NOTE | 2019-04-16 07:08 | NUR ---
paged hospitalist to notify of chest pain. awaiting call back.
[2019-04-16] MEDS ORDERED: NITROGLYCERIN 0.4 MG SL TAB SL ONE (07:14)
[2019-04-16] MEDS ORDERED: MORPHINE SULF INJ 2 MG/ML SYRINGE 1ML ONE (07:14)
[2019-04-16] MEDS: NITROGLYCERIN 0.4 MG SL TAB SL PRN ×3 (07:16→07:26)
--- NOTE | 2019-04-16 07:30 | NUR ---
PROVIDED REPORT TO DAY DESIREE HARO AND DAIJA RAMÍREZ AND NOTIFIED THEM BOTH OF CHEST PAIN SITUATION.
--- NOTE | 2019-04-16 07:30 | NUR ---
Opening Shift Note Assumed care of patient, awake, alert and oriented. Patient c/o chest pain 9/10 on pain scale, c/o pressure and radiating to left jaw and left shoulder, chest pain protocol initiated by eugene RNJeffery.
--- NOTE | 2019-04-16 07:45 | NUR ---
MD NOTIFIED MD OF PATIENT C/P COMPLAINT AND EKG RESULTS. PER DR GONZALES NEW ORDERS RECEIVED/CARRIED OUT. WILL CONTINUE TO MONITOR.
[2019-04-16] MEDS ORDERED: MORPHINE SULFATE 4 MG/ML SYR/VIAL IV PRN (08:00)
--- NOTE | 2019-04-16 08:00 | NUR ---
RN ADVISED ME EKG READ AND SIGNED.
--- NOTE | 2019-04-16 08:06 | NUR ---
DANDRE LAWSON PAGED DR KIMBLE RE: PATIENT WITH C/P COMPLAINT AND EKG RESULTS. AWAITING RETURN PHONE CALL RECEIVE CALL DR KIMBLE RETURNED PHONE CALL. NEW ORDERS RECEIVED/CARRIED OUT. WILL CONTINUE TO MONITOR
--- NOTE | 2019-04-16 08:15 | NUR ---
PATIENT VERBALLY STATES CHEST PAIN IS 3 OUT OF 10 AND IS TOLERABLE. DAY RN AWARE.
--- NOTE | 2019-04-16 08:26 | NUR ---
0710 SPOKE TO HOSPITALIST CLAU AND NOTIFIED HIM OF CHEST PAIN, NO MEDS, EKG DONE, VITALS. OLGUIN PROVIDED NEW ORDER FOR CHEST PAIN PROTOCOL. WILL CARRY OUT. NOTIFIED CHARGE NURSE. 0716 PROVIDED FIRST NITRO: 129/79, HR 89, PAIN 8 OF 10, 97 O2 0721 PROVIDED SECOND NITRO: 122/78, HR 101, 7 PAIN, 94 O2 0726 PROVIDED THIRD NITRO: 118/78, HR 112, 7 PAIN, 95 O2 0731 PROVIDED MORPHINE 2 M/70, 7 PAIN 115 HR, 95 O2 0736 VITALS 117/62 HR 98, 6 PAIN, 98 02, 0742 PAGED SHYANNE AND PAGED HOSPITALIST FOR CHEST PAIN NOT DECREASING AFTER 3 NITROS, AND MORPHINE. CHEST PAIN 6 0744 SPOKE TO HOSPITALIST CLAU AND NOTIFIED CHEST PAIN NOT DECREASING AFTER 3 NITROS, AND MORPHINE. ORDERS GIVEN BY HOSPITALIST TO PUT CARDIO CONSULT, STAT TROPONIN AND TO CALL SHYANNE LAWSON YARDING SUPERVISOR. 0747 CALLED FILENET P8 DEVELOPER FOR TROPONIN STAT. 0750 PAGED SHYANNE LAWSON YARDING SUPERVISOR
[2019-04-16 08:30] VITALS: BP 127/69
--- NOTE | 2019-04-16 09:00 | NUR ---
AT BEDSIDE DR KIMBLE AT BEDSIDE DISCUSSING POC WITH PATIENT. ALL QUESTIONS/CONCERNS ANSWERED. NEW ORDERS RECEIVED/CARRIED OUT. WILL CONTINUE TO MONITOR
[2019-04-16] MEDS: LACTULOSE 20Gm/30ML SOLN PO SCH ×2 (10:00→21:36)
[2019-04-16] MEDS: ASPirin-EC 81 mg tab PO SCH (10:00)
[2019-04-16] MEDS: LOSARTAN POTASSIUM 25 MG TAB PO SCH (10:12)
--- NOTE | 2019-04-16 10:18 | NUR ---
AT BEDSIDE DR DE LA CRUZ AT BEDSIDE DISCUSSING POC WITH PATIENT. ALL QUESTIONS/CONCERNS ANSWERED. NEW ORDERS RECEIVED/CARRIED OUT.
[2019-04-16] MEDS ORDERED: ACETAMINOPHEN 500 MG TAB PO PRN (10:30)
[2019-04-16] MEDS ORDERED: NITROGLYCERIN 0.2MG/HR TOPICAL PATCH TD ONE (10:30)
[2019-04-16] MEDS ORDERED: RANOLAZINE ER 500 MG TAB PO ONE (10:45)
[2019-04-16] MEDS ORDERED: MAGNESIUM CITRATE SOLUTION 300 ML BTL PO ONE (10:45)
[2019-04-16] MEDS: SODIUM CHLORIDE 0.9% 1,000 ML IV SCH (11:27)
[2019-04-16 11:28] LABS: Basophils # (auto) 0 uL; Basophils % (auto) 0.6 % (0.0-2.0); Eosinophils # (auto) 0.1 uL; Eosinophils % (auto) 1.7 % (0.0-7.0); Hematocrit 42.7 % (41.0-53.0); Hemoglobin 13.9 g/dL (13.5-17.5); Lymphocytes # (auto) 1.6 uL; Lymphocytes % (auto) 42.3 % (10.0-50.0); Mean Corpuscular Hemoglobin 27.4 pg (28.0-32.0); Mean Corpuscular Hgb Conc. 32.7 g/dL (32.0-36.0); Monocytes # (auto) 0.6 uL; Neutrophils # (auto) 1.4 uL; Neutrophils % (auto) 39.4 % (37.0-80.0); Nucleated Red Blood Cells % 0.1 %; Platelet Count (auto) 176 10^3/uL (140-450); Red Blood Cells 5.08 10^6/uL (4.5-5.90); Red Cell Distribution Width 14.9 % (11.8-14.3); White Blood Cell 3.7 10^3/uL (4.4-10.8)
[2019-04-16 11:37] LABS: Albumin 3.7 g/dL (3.4-5.0); Calcium 9.2 mg/dL (8.5-10.1); Potassium 4.2 mmol/L (3.5-5.1)
[2019-04-16 11:41] LABS: BUN/Creatinine Ratio 15.3; Bilirubin, Total 0.3 mg/dL (0.2-1.0); Total Protein 7.7 g/dL (6.4-8.2)
[2019-04-16 11:44] LABS: INR 0.99 (0.9-1.15); Partial Thromboplastin Time 26.8 sec (23.64-32.05)
[2019-04-16] MEDS: CLOPIDOGREL BISULFATE 75 MG TAB PO SCH (12:45)
--- NOTE | 2019-04-16 12:55 | NUR ---
OFF UNIT PATIENT TAKEN TO CUSTOMER PRICING MANAGER. NO SOB OR C/O PAIN
[2019-04-16] MEDS ORDERED: LIDOCAINE 2%HCL (LOCAL ANESTH.) INJ 20ML MDV ONE (13:47)
[2019-04-16] MEDS ORDERED: IOHEXOL 350 MG/ML 100ML IJ ONE (13:47)
[2019-04-16] MEDS ORDERED: fentaNYL CITRATE 100 MCG/2 ML VL ONE (13:52)
[2019-04-16] MEDS ORDERED: MIDAZOLAM HCL 1MG/1ML-2 ML VIAL ONE (13:52)
[2019-04-16] MEDS ORDERED: SODIUM CHL 0.9% 0 ML ONE (13:52)
[2019-04-16] MEDS ORDERED: ANGIOMAX 250 MG VIAL IV ONE (13:52)
[2019-04-16] MEDS ORDERED: methylPREDNISolone SOD SUCC 125 MG/2 ML VL ONE (13:55)
[2019-04-16] MEDS ORDERED: diphenhdrAMINE HCL 50 MG/1 ML VL ONE (13:56)
[2019-04-16] MEDS ORDERED: ONDANSETRON HCL 4 MG/2 ML VIAL ONE (13:56)
[2019-04-16] MEDS ORDERED: FAMOTIDINE (10MG/ML) 2ML VL IV ONE (13:56)
--- NOTE | 2019-04-16 15:15 | NUR ---
ON UNIT PATIENT BACK FROM HEAT AND FROST INSULATOR. NO SOB OR DISTRESS NOTED. DRESSING TO LEFT GROIN C/D/I. PATIENT INSTRUCTED SIT UP TIME 1630, PATIENT VERBALIZED UNDERSTANDING. WILL CONTINUE TO MONITOR.
--- NOTE | 2019-04-16 16:00 | NUR ---
D/ C Planning Followed up call and re-faxed referral to [facility], [facility], [facility] and [facility]. Spoke to multiple representatives and they all stated there is no beds available at the moment.
[2019-04-16 16:50] VITALS: BP 114/57
--- NOTE | 2019-04-16 16:50 | NUR ---
REPORT GIVEN CALLED REPORT TO DESIREE PENALOZA. TRANSPORTED PATIENT TO ROOM 288B.
--- NOTE | 2019-04-16 16:56 | NUR ---
Received patient Received patient from Ai RAMÍREZ. Patient is awake, alert and oriented x4. No signs or symptoms of distress noted at this time. Patient is on room air, respirations even and unlabored. Patient denies pain at this time. Reviewed plan of care. Will continue to monitor Q1 hour and PRN. Sitter at bedside for safety.
[2019-04-16 17:48] VITALS: BP 125/77
--- NOTE | 2019-04-16 19:20 | NUR ---
Closing Note Report given to laborer cook house RN. No signs or symptoms of distress noted at this time. Sitter at bedside for safety.
[2019-04-16] MEDS: HYDROcodone-ACET 7.5/325MG TAB PO PRN (20:06)
[2019-04-16] MEDS: RANOLAZINE ER 500 MG TAB PO SCH (21:37)
[2019-04-16] MEDS: QUEtiapine FUMARATE 100 MG TAB PO SCH (21:37)
[2019-04-16 21:53] VITALS: BP 112/67
[2019-04-17] MEDS: HYDROcodone-ACET 7.5/325MG TAB PO PRN ×3 (02:24→18:31)
[2019-04-17 05:00] LABS: BUN/Creatinine Ratio 16.2; Calcium 9.1 mg/dL (8.5-10.1)
[2019-04-17 05:44] VITALS: BP 116/68
[2019-04-17] MEDS: SODIUM CHLORIDE 0.9% 1,000 ML IV SCH ×2 (05:56→11:20)
[2019-04-17] MEDS: LEVOTHYROXINE SODIUM 25 MCG TAB PO SCH (06:35)
--- NOTE | 2019-04-17 08:00 | NUR ---
PT RESTING IN BED, SITTER AT BEDSIDE. NO DISTRESS NOTED. PT REPORTS HE WANTS TO FILE A GRIEVANCE WITH THE WATER PUMP INSTALLER THAT ASHER HIS BLOOD AT 0400. PT REPORTS THE WATER PUMP INSTALLER WAS ,"NOT NICE," AND WAS "FISHING AROUND FOR THE VEIN." TOLD PATIENT IT WOULD BE REPORTED TO CHARGE NURSE AND TAKEN FROM THERE. SIDE RAILS UP X 2, BED IN LOWEST LOCKED POSITION, CALL LIGHT IN REACH. WILL CONTINUE TO MONITOR.
[2019-04-17 09:00] VITALS: BP 95/57
[2019-04-17] MEDS: ASPirin-EC 81 mg tab PO SCH (09:30)
[2019-04-17] MEDS: RANOLAZINE ER 500 MG TAB PO SCH ×2 (09:31→22:22)
[2019-04-17] MEDS: CLOPIDOGREL BISULFATE 75 MG TAB PO SCH (09:31)
[2019-04-17] MEDS: LOSARTAN POTASSIUM 25 MG TAB PO SCH (09:32)
[2019-04-17] MEDS: LACTULOSE 20Gm/30ML SOLN PO SCH ×2 (09:33→22:22)
[2019-04-17] MEDS: NITROGLYCERIN 0.2MG/HR TOPICAL PATCH TD SCH (09:34)
--- NOTE | 2019-04-17 12:31 | NUR ---
CHARGE NURSE NOTIFIED PATIENT UNHAPPY WITH RN COMPLEX CARE.
[2019-04-17 13:00] VITALS: BP 108/81
--- NOTE | 2019-04-17 15:25 | NUR ---
Nutrition Follow-up Notes Wt.: 89.8 kg as of yesterday. Pt's s/p Coronary Angiography yesterday, sitting up at the edge of bed, denies any discomfort except for mild pain on left groin incision during rounds this morning. 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 currently on Cardiac: 2 gms Na, Low Chol, Low Fat diet diet with adequate PO intake aeb 95% ave. consumed meals (x7) in last 3 days. Provide verbal and written nutrition educ. re: current therapeutic diet and he verbalized understanding. Est. Needs ABW 79 [id number] kcal (23-25 kcal/kgBW), 79-86 gms pro (1.0-1.1 gms/kgBW). Will continue to monitor pertinent labs and reassess nutrient need prn Labs: Gluc 177 H, BUN 23 H, Cr 1.42 H Skin: Nolan scale 21, low risk, pt's right groin incision dry and intact per sewer pipe layer helper. GI: Pt had 1 BM 04/14/19 per sewer pipe layer helper. Noted pt's on Lactulose PES: Altered nutrition related lab values r/t current/chronic medical condition aeb hypocalcemia, elev creat Obesity r/t food intake more than body requirement aeb 133% IBW, BMI 31.0 kg/m2 and increased body adiposity Will continue to monitor PO intake, skin status, pertinent labs and weight trend. F/u in 3 to 5 days. Rec.: 1.) Continue close supervision with meals. 2.) If renal labs continue trending up, consider Renal Specific: 60 gms pro, in addition to current therapeutic diet. 3.) Refer pt to RD for further nutrition education and weight monitoring upon discharge. 4.) Continue current plan of care.
[2019-04-17 16:54] VITALS: BP 133/79
--- NOTE | 2019-04-17 19:30 | NUR ---
Opening Shift Note Assumed care of patient, awake and alert x4. No S/S of distress/SOB or pain. Call light is within reach, side rails up x2, bed is in lowest position. Instructed on POC and to call for assist PRN. All questions and concerns answered, will continue to monitor for changes Q1hr and PRN.
[2019-04-17 22:00] VITALS: BP 144/70
[2019-04-17] MEDS: QUEtiapine FUMARATE 100 MG TAB PO SCH (22:22)
[2019-04-18] MEDS: SODIUM CHLORIDE 0.9% 1,000 ML IV SCH ×2 (02:30→18:17)
[2019-04-18 05:00] VITALS: BP 116/68
[2019-04-18] MEDS: HYDROcodone-ACET 7.5/325MG TAB PO PRN ×2 (05:31→19:12)
[2019-04-18] MEDS: LEVOTHYROXINE SODIUM 25 MCG TAB PO SCH (06:32)
[2019-04-18 09:00] VITALS: BP 118/66
[2019-04-18] MEDS: LOSARTAN POTASSIUM 25 MG TAB PO SCH (10:00)
[2019-04-18] MEDS: LACTULOSE 20Gm/30ML SOLN PO SCH ×2 (10:09→22:50)
[2019-04-18] MEDS: ASPirin-EC 81 mg tab PO SCH (10:09)
[2019-04-18] MEDS: CLOPIDOGREL BISULFATE 75 MG TAB PO SCH (10:09)
[2019-04-18] MEDS: RANOLAZINE ER 500 MG TAB PO SCH ×2 (10:09→22:50)
[2019-04-18] MEDS: NITROGLYCERIN 0.2MG/HR TOPICAL PATCH TD SCH (10:10)
[2019-04-18 13:00] VITALS: BP 124/64
--- NOTE | 2019-04-18 14:45 | NUR ---
Pt referred for psych placement per tele psych recommendations. Clinical information faxed to numerous facilities but pt declined due to no beds and pt is full Medi-enriqueta and does not have an inpt psych benefit. Pt is no longer on a 5150 hold and is receptive to voluntary placement . [facility] and [facility] were contacted ( they are the two that will take voluntary placement) and they do not accept medi-enriqueta. Pt is presently medically clear for discharge by the MD. Pt is in agreeance with outpatient mental health followup but states he needs a place to stay. Pt has an income of $1018 per month. He was staying at a [facility] prior but states his bed was given away. Pt is receptive to other placement. Provided pt with the option of a room and board for $800 a month.at [facility]. Pt agreed but states he'd have to pay on the first. Faxed clinical information and pt accepted for placement. Facility helicopter pilot, Tim , states he will transport pt post discharge. Pt will be provided information on behavioral health clinic for followup. Pt verbalized understanding and agreeance with above discharge plan.
[2019-04-18 17:00] VITALS: BP 134/76
--- NOTE | 2019-04-18 17:31 | NUR ---
D/C planning Per SS consult for Placement. [place] [address] [address] [facility] [id number] Ph:) will accept Pt with a cost of 750 per month. Please Contact ROYCE Ram tomorrow 04/19/19 regarding d/c plan. Pt was given resource for Behavioral Health and [facility] located in [facility] at bedside Pt verbalize understanding.
--- NOTE | 2019-04-18 19:23 | NUR ---
Opening Shift Note Assumed care of patient, awake and alert x4. No S/S of distress/SOB or pain. Call light is within reach, side rails up x2, bed is in lowest position. Sitter is at bedside for safety.Instructed on POC and to call for assist PRN, will continue to monitor for changes Q1hr and PRN.
[2019-04-18] MEDS: QUEtiapine FUMARATE 100 MG TAB PO SCH (22:51)
[2019-04-19] MEDS: HYDROcodone-ACET 7.5/325MG TAB PO PRN (04:03)
[2019-04-19] MEDS: SODIUM CHLORIDE 0.9% 1,000 ML IV SCH (05:10)
[2019-04-19] MEDS: LEVOTHYROXINE SODIUM 25 MCG TAB PO SCH (06:20)
--- NOTE | 2019-04-19 07:30 | NUR ---
PT AWAKE, ALERT, ORIENTEDx4 COOPERATIVE OF CARE. PT DENIES S.I.; H.I.; DENIES HEARING VOICES. IV PRESENT TO LFA#22. PT UNDER DIRECT OBSERVATION. PT REPORTS COMFORT AT MOMENT. WILL CONTINUE TO MONITOR.
[2019-04-19] MEDS: LOSARTAN POTASSIUM 25 MG TAB PO SCH (10:00)
[2019-04-19] MEDS: LACTULOSE 20Gm/30ML SOLN PO SCH (10:17)
[2019-04-19] MEDS: CLOPIDOGREL BISULFATE 75 MG TAB PO SCH (10:17)
[2019-04-19] MEDS: RANOLAZINE ER 500 MG TAB PO SCH (10:17)
[2019-04-19] MEDS: ASPirin-EC 81 mg tab PO SCH (10:17)
[2019-04-19] MEDS: NITROGLYCERIN 0.2MG/HR TOPICAL PATCH TD SCH (10:18)
--- NOTE | 2019-04-19 14:45 | NUR ---
DR. Garcia IN TO SEE PT. PT BEING DISCHARGED TO [facility]. ANDREW FROM [facility] CALLED AND ASKED IF PT COULD BE DISCHARGED AT 1700. PER PATI [facility] PROVID[facility]SP[facility] AND ARRANGEMENT INTO FACILITY.
[2019-04-19 15:15] VITALS: BP 125/71
--- NOTE | 2019-04-19 15:50 | NUR ---
RECEIVED CALL FROM [facility] WHO WILL BE PROVIDING TRANSPORTATION TO [facility]. ESTIMATED CORPORATE PHYSICAL SECURITY SUPERVISOR TIME AT 1730. INFORMATION RELAYED TO PT.
--- NOTE | 2019-04-19 16:00 | NUR ---
[facility] PHONE: [phone]
--- NOTE | 2019-04-19 18:32 | NUR ---
DISCHARGE INSTRUCTIONS PROVIDED TO PT. PT VERBALIZED UNDERSTANDING FOR PRESCRIPTION ORDERS AND FOLLOW UP APPOINTMENT. PT IN AGREEMENT WITH DISCHARGE TO [facility]. EDUCATIONAL MATERIAL PROVIDED, QUESTIONS AND CONCERNS ADDRESSED. IV CATHETER DC'D, CATHETER INTACT, NO PHLEBITIS, TELE BOX REMOVED AND RETURNED TO MONITORING DEPT. HERN[facility] FROM [facility] PROVIDED TRANSPORTATION. PT ESCORTED OUT OF UNIT SAFELY.
== END 2019-04-19 18:30 | disposition home or self-care (01) | DRG 175 ==
LOC: ER 15:45 → TELE 15:46 → CENTRAL 23:32 → TELE-CENTR 04-07 00:20 → TELE-WESTW 04-10 20:44 → TELE-CENTR 04-12 22:05 → TELE-WESTW 04-16 16:56
PROVIDERS: ADMIT Nurse Practitioner Family; ATTEND Internal Medicine
PROC: 027034Z Dilation of Coronary Artery, One Artery with Drug-eluting Intraluminal Device, Percutaneous Approach (ICD-10-PCS; principal; 2019-04-07)
PROC: 4A033BC Measurement of Arterial Pressure, Coronary, Percutaneous Approach (ICD-10-PCS; 2019-04-07)
PROC: 02C03ZZ Extirpation of Matter from Coronary Artery, One Artery, Percutaneous Approach (ICD-10-PCS; 2019-04-07)
PROC: 02723ZZ Dilation of Coronary Artery, Three Arteries, Percutaneous Approach (ICD-10-PCS; 2019-04-07)
PROC: B2111ZZ Fluoroscopy of Multiple Coronary Arteries using Low Osmolar Contrast (ICD-10-PCS; 2019-04-07)
PROC: 02C13ZZ Extirpation of Matter from Coronary Artery, Two Arteries, Percutaneous Approach (ICD-10-PCS; 2019-04-07)
PROC: B2111ZZ Fluoroscopy of Multiple Coronary Arteries using Low Osmolar Contrast (ICD-10-PCS; 2019-04-16)
DX: T82.855A Stenosis of coronary artery stent, initial encounter (principal); R45.851 Suicidal ideations; N18.3 Chronic kidney disease, stage 3 (moderate); I25.10 Atherosclerotic heart disease of native coronary artery without angina pectoris; E78.5 Hyperlipidemia, unspecified; F15.19 Other stimulant abuse with unspecified stimulant-induced disorder; F41.9 Anxiety disorder, unspecified; H40.9 Unspecified glaucoma; H54.62 Unqualified visual loss, left eye, normal vision right eye; I12.9 Hypertensive chronic kidney disease with stage 1 through stage 4 chronic kidney disease, or unspecified chronic kidney disease; F31.9 Bipolar disorder, unspecified; E03.9 Hypothyroidism, unspecified; E78.00 Pure hypercholesterolemia, unspecified; Y84.8 Other medical procedures as the cause of abnormal reaction of the patient, or of later complication, without mention of misadventure at the time of the procedure; F15.10 Other stimulant abuse, uncomplicated; Z79.02 Long term (current) use of antithrombotics/antiplatelets; Z91.14 Patient's other noncompliance with medication regimen; Z95.5 Presence of coronary angioplasty implant and graft; Z79.899 Other long term (current) drug therapy; Z82.49 Family history of ischemic heart disease and other diseases of the circulatory system; Z83.3 Family history of diabetes mellitus; Z88.1 Allergy status to other antibiotic agents; Z88.0 Allergy status to penicillin; Z88.8 Allergy status to other drugs, medicaments and biological substances; Y92.89 Other specified places as the place of occurrence of the external cause
CPT/HCPCS: 36415; 71045; 80048; 80053; 80307; 81001; 82565; 83735; 83880; 84443; 84484; 85025; 85610; 85730; 86850; 86900; 86901; 92920; 92921; 92924; 92928; 93005; 93306; 93454; 93571; 93971; 99152; 99153; C1874; C1887; G0378; J0153; J2250; J2405; J3490

== ENCOUNTER 2019-09-10 21:04 | Inpatient (IN) | payer MEDICAID ==
[~2019-09-10] VITALS: Ht 170.2 cm; Wt 87.9 kg
[~2019-09-10 21:04] MED LIST: ALBU2TAB4 PO; ASPI81CH43 PO; CARV3.1240 PO; CLOP75TA28 PO; LEVO25TA49 PO; QUET25TA37 PO; VALS1TAB56 PO
[2019-09-10 22:27] LABS: Basophils # (auto) 0 uL; Basophils % (auto) 0.9 % (0.0-2.0); Eosinophils # (auto) 0.3 uL; Eosinophils % (auto) 7.8 % (0.0-7.0); Hematocrit 36.5 % (41.0-53.0); Hemoglobin 12.2 g/dL (13.5-17.5); Lymphocytes # (auto) 1.1 uL; Lymphocytes % (auto) 31.4 % (10.0-50.0); Mean Corpuscular Hgb Conc. 33.4 g/dL (32.0-36.0); Mean Corpuscular Volume 80.8 fL (80.0-100.0); Monocytes # (auto) 0.7 uL; Neutrophils # (auto) 1.5 uL; Neutrophils % (auto) 41.5 % (37.0-80.0); Nucleated Red Blood Cells % 0.1 %; Platelet Count (auto) 160 10^3/uL (140-450); Red Blood Cells 4.52 10^6/uL (4.5-5.90); Red Cell Distribution Width 16.7 % (11.8-14.3); White Blood Cell 3.6 10^3/uL (4.4-10.8)
[2019-09-10 22:34] LABS: Monocytes % (auto) 18.4 % (0.0-12.0)
[2019-09-10 22:42] LABS: INR 1.07 (0.9-1.15); Partial Thromboplastin Time 26.8 sec (23.64-32.05)
[2019-09-10 22:43] LABS: Albumin 3.9 g/dL (3.4-5.0); Anion Gap 4 (5-15); Blood Urea Nitrogen 20 mg/dL (7-18); Calcium 8.8 mg/dL (8.5-10.1); Carbon Dioxide 28 mmol/L (21-32); Chloride 108 mmol/L (98-107); Glucose 107 mg/dL (74-106); Magnesium 2.3 mg/dL (1.6-2.6); Potassium 3.8 mmol/L (3.5-5.1); Sodium 140 mmol/L (136-145)
[2019-09-10 22:48] LABS: Alanine Aminotransferase 24 U/L (16-61); Alkaline Phosphatase 68 U/L (45-117); Aspartate Aminotransferase 22 U/L (15-37); BUN/Creatinine Ratio 13.3; Bilirubin, Total 0.2 mg/dL (0.2-1.0); GFR African American 64 mL/min; GFR Non-African American 53 mL/min; Total Protein 7.8 g/dL (6.4-8.2)
[2019-09-11 02:11] LABS: Urine Bacteria FEW /hpf (None Seen); Urine Blood Negative /uL (Negative); Urine Mucus FEW (None Seen); Urine Specific Gravity 1.014 (1.001-1.035); Urine Sperm PRESENT /hpf (None Seen); Urine WBC 15 /hpf (0 - 3)
[2019-09-11] MEDS ORDERED: ONDANSETRON HCL 4 MG/2 ML VIAL IV ONE (02:15)
[2019-09-11] MEDS ORDERED: MORPHINE SULF INJ 2 MG/ML SYRINGE 1ML IV ONE (02:15)
[2019-09-11 02:19] LABS: Alcohol, Urine < 3.0 mg/dL (0-5); Amphetamine Screen, Urine NEGATIVE (NEGATIVE); Barbiturate Scree,Urine NEGATIVE (NEGATIVE); Cannabinoid Screen, Urine POSITIVE (NEGATIVE); Cocaine Screen, Urine NEGATIVE (NEGATIVE); Opiate Scree,Urine POSITIVE (NEGATIVE); Phencyclidine Screen, Urine NEGATIVE (NEGATIVE)
[2019-09-11 02:27] LABS: Benzodiazephine Screen, Urine NEGATIVE (NEGATIVE)
[2019-09-11] MEDS ORDERED: AZITHROMYCIN 200 MG/5 ML ORAL SUSP PO ONE (02:45)
[2019-09-11] MEDS ORDERED: ACETAMINOPHEN 325 MG TAB PO PRN (03:30)
[2019-09-11] MEDS ORDERED: NITROGLYCERIN 0.4 MG SL TAB SL PRN (03:30)
[2019-09-11] MEDS ORDERED: TEMAZEPAM 15 MG CAP PO PRN (03:30)
[2019-09-11] MEDS ORDERED: AZITHROMYCIN 500MG/ 250ML 250 ML IV ONE (03:30)
--- NOTE | 2019-09-11 05:29 | NUR ---
ER CALLED CARDIO CONSULT WITH DR. ROSE.
[2019-09-11 05:30] VITALS: BP 124/76
--- NOTE | 2019-09-11 05:30 | NUR ---
Telemetry admit from ER WILLIE ELAM admitted to Telemetry unit. Patient oriented to BRIGITTE MIMS, RN primary RN, unit, room, bed, and unit policies regarding patient care and visiting hours. Patient now on continuous telemetry monitoring, tele box #18. Patient weighed by bedscale and encouraged to call if they need something. Explained plan of care to patient, patient verbalized understanding.
[2019-09-11] MEDS: LEVOTHYROXINE SODIUM 25 MCG TAB PO SCH (06:58)
[2019-09-11] MEDS ORDERED: ALBU1.257 IN (07:45)
[2019-09-11] MEDS ORDERED: QUET200T30 PO (07:48)
[2019-09-11] MEDS ORDERED: RANO1000 PO (07:49)
[2019-09-11] MEDS ORDERED: APIX5TAB PO (07:50)
[2019-09-11] MEDS ORDERED: MULT-2 OR (07:50)
[2019-09-11] MEDS ORDERED: ESCI10TA53 PO (07:51)
[2019-09-11 08:00] VITALS: BP 104/55
[2019-09-11] MEDS: MORPHINE SULF INJ 2 MG/ML SYRINGE 1ML IV PRN ×3 (08:53→23:12)
[2019-09-11 09:00] VITALS: BP 104/55
[2019-09-11] MEDS: VALSARTAN 80 MG TAB PO SCH (10:00)
[2019-09-11] MEDS: FAMOTIDINE 20 MG TAB PO SCH ×2 (10:00→22:00)
[2019-09-11] MEDS ORDERED: ASPirin 81 mg TAB PO SCH (10:00)
[2019-09-11] MEDS: CARVEDILOL 3.125 MG TAB PO SCH ×2 (10:00→22:00)
[2019-09-11] MEDS: LEVOFLOXACIN 500MG 100 ML IV SCH (10:01)
[2019-09-11] MEDS: CLOPIDOGREL BISULFATE 75 MG TAB PO SCH (10:02)
[2019-09-11 11:47] LABS: Hematocrit 36.3 % (41.0-53.0); Mean Corpuscular Hgb Conc. 33.1 g/dL (32.0-36.0); Mean Corpuscular Volume 81.4 fL (80.0-100.0); Platelet Count (auto) 144 10^3/uL (140-450); Red Blood Cells 4.45 10^6/uL (4.5-5.90); Red Cell Distribution Width 17.2 % (11.8-14.3); White Blood Cell 3.4 10^3/uL (4.4-10.8)
[2019-09-11 12:07] LABS: Band Neutrophils % (manual) 0; Basophils % (manual) 0 (0.0-2.0); Blast Cells 0; Metamyelocytes % 0; Myelocytes % 0; Promyelocytes % 0; Reactive Lymphocytes 0
[2019-09-11 12:10] LABS: Albumin 3.4 g/dL (3.4-5.0); Calcium 8.9 mg/dL (8.5-10.1); Potassium 4.2 mmol/L (3.5-5.1)
[2019-09-11 12:13] LABS: BUN/Creatinine Ratio 13.1; Bilirubin, Total 0.3 mg/dL (0.2-1.0); Total Protein 7.1 g/dL (6.4-8.2)
--- NOTE | 2019-09-11 12:36 | NUR ---
SPOKE WITH DR RODRIGUES REGARDING PATIENT DISCOMFORT. ORDERS RECEIVED FROM DR RODRIGUES AND CARRIED OUT
[2019-09-11] MEDS ORDERED: MORPHINE SULF INJ 2 MG/ML SYRINGE 1ML IV PRN (12:45)
[2019-09-11 13:00] VITALS: BP 112/62
--- NOTE | 2019-09-11 15:11 | NUR ---
DR ROSE BEDSIDE WITH PATIENT DISCUSSING PLAN OF CARE. ORDERS RECEIVED AND CARRIED OUT
[2019-09-11 15:19] LABS: Eosinophils % (manual) 6 (0-7); Lymphocytes % (manual) 25 (10.0-50.0); Monocytes % (manual) 27 (0-12)
[2019-09-11] MEDS ORDERED: NITROGLYCERIN 2% OINT 1GM PKG TD PRN (15:45)
[2019-09-11 17:00] VITALS: BP 127/78
--- NOTE | 2019-09-11 17:45 | NUR ---
INFORMED HOUSE SUP, CLARITA, OF PATIENTS LEFT HEART CATH TOMORROW PER DR ROSE'S REQUEST.
--- NOTE | 2019-09-11 19:34 | NUR ---
Opening Shift Note Received report and assumed care of patient. Patient is awake and alert. No signs or symptoms of distress noted. Instructed patient on plan of care and to call for assistance as needed. Will continue to monitor.
[2019-09-11 20:51] VITALS: BP 123/73
[2019-09-11] MEDS: ENOXAPARIN SOD 100 MG/1 ML SYRINGE SC SCH (22:00)
[2019-09-11] MEDS: RANOLAZINE ER 500 MG TAB PO SCH (23:12)
[2019-09-12] MEDS: MORPHINE SULF INJ 2 MG/ML SYRINGE 1ML IV PRN ×3 (03:20→21:25)
[2019-09-12] MEDS: ONDANSETRON HCL 4 MG/2 ML VIAL IV PRN ×2 (04:32→21:25)
[2019-09-12 05:23] VITALS: BP 120/78
[2019-09-12] MEDS: LEVOTHYROXINE SODIUM 25 MCG TAB PO SCH (06:41)
[2019-09-12 07:00] LABS: Hematocrit 35.4 % (41.0-53.0); Mean Corpuscular Hemoglobin 27.2 pg (28.0-32.0); Mean Corpuscular Hgb Conc. 33.8 g/dL (32.0-36.0); Mean Corpuscular Volume 80.4 fL (80.0-100.0); Platelet Count (auto) 142 10^3/uL (140-450); Red Cell Distribution Width 17.2 % (11.8-14.3)
[2019-09-12 07:04] LABS: BUN/Creatinine Ratio 11.5; Calcium 8.5 mg/dL (8.5-10.1)
[2019-09-12 07:16] LABS: Band Neutrophils % (manual) 0; Basophils % (manual) 0 (0.0-2.0); Blast Cells 0; Metamyelocytes % 0; Myelocytes % 0; Promyelocytes % 0
--- NOTE | 2019-09-12 07:42 | NUR ---
Opening Shift Note Assumed care of patient, sleeping comfortably in bed and was easily awakened . No S/S of distress/SOB or pain. Instructed on POC and to call for assist PRN, will continue to monitor for changes Q1hr and PRN. Patient NPO for left heart cath today and patient is aware.
[2019-09-12 08:15] VITALS: BP 122/71
[2019-09-12 08:24] LABS: Lymphocytes % (manual) 41 (10.0-50.0); Monocytes % (manual) 15 (0-12)
[2019-09-12 08:25] LABS: Eosinophils % (manual) 8 (0-7); Reactive Lymphocytes 1
[2019-09-12] MEDS ORDERED: IOHEXOL 350 MG/ML 100ML IJ ONE (08:35)
[2019-09-12] MEDS ORDERED: LIDOCAINE 2%HCL (LOCAL ANESTH.) INJ 20ML MDV ONE (08:35)
--- NOTE | 2019-09-12 08:50 | NUR ---
Patient brought down to cath lab radiological technologist per bed aaox4, was in no pain/ distress for left heart catheterization.
[2019-09-12 09:19] VITALS: BP 122/71
[2019-09-12] MEDS ORDERED: diphenhdrAMINE HCL 50 MG/1 ML VL ONE (10:00)
[2019-09-12] MEDS ORDERED: ANGIOMAX 250 MG VIAL IV ONE (10:00)
[2019-09-12] MEDS: ENOXAPARIN SOD 100 MG/1 ML SYRINGE SC SCH ×2 (10:00→11:01)
[2019-09-12] MEDS: FAMOTIDINE 20 MG TAB PO SCH ×2 (10:00→21:24)
[2019-09-12] MEDS ORDERED: SODIUM CHL 0.9% 50 ML ONE (10:01)
[2019-09-12] MEDS ORDERED: IODIXANOL 320MG/ML 100ML BTL IV ONE (10:01)
[2019-09-12] MEDS ORDERED: fentaNYL CITRATE 100 MCG/2 ML VL ONE (10:01)
[2019-09-12] MEDS ORDERED: MIDAZOLAM HCL 1MG/1ML-2 ML VIAL ONE (10:01)
[2019-09-12] MEDS ORDERED: FAMOTIDINE (10MG/ML) 2ML VL IV ONE (10:04)
[2019-09-12] MEDS ORDERED: methylPREDNISolone SOD SUCC 125 MG/2 ML VL ONE (10:04)
--- NOTE | 2019-09-12 12:36 | NUR ---
PATIENT RETURNED TO HIS ROOM PER BED S/P LEFT HEART CATH ACCOMPANIED BY FINISH MILL OPERATOR DESIREE PEREZ. PATIENT NOTED TO BE AAOX4, VOICED NO C/O PAIN, NO DISTRESS. LEFT GROIN WITH DRESSINGS CLEAN, DRY AND INTACT AND NO HEMETOMA, BLEEDING NOTED AND SITE WAS SOFT TO TOUCH. WILL CONTINUE TO MONITOR PATIENT.
[2019-09-12 13:00] VITALS: BP 120/84
[2019-09-12] MEDS: LEVOFLOXACIN 500MG 100 ML IV SCH (13:01)
[2019-09-12] MEDS: CLOPIDOGREL BISULFATE 75 MG TAB PO SCH (13:03)
[2019-09-12] MEDS: VALSARTAN 80 MG TAB PO SCH (13:03)
[2019-09-12] MEDS: CARVEDILOL 3.125 MG TAB PO SCH ×2 (13:03→21:24)
[2019-09-12] MEDS: ASPirin 81 mg TAB PO SCH (13:04)
[2019-09-12] MEDS: RANOLAZINE ER 500 MG TAB PO SCH ×2 (13:05→21:23)
[2019-09-12 16:46] VITALS: BP 125/75
--- NOTE | 2019-09-12 17:38 | NUR ---
[place] MEHTA HEEL NAILING MACHINE OPERATOR WAS IN TO SEE PATIENT AND LEFT PRESCRIPTION IN PATIENT'S CHART.
[2019-09-12] MEDS: APIXABAN 5 MG TAB PO SCH (21:24)
[2019-09-12 21:35] VITALS: BP 138/83
[2019-09-13] VITALS (7 sets, daily range): BP systolic 108–142; BP diastolic 53–85
[2019-09-13] MEDS: MORPHINE SULF INJ 2 MG/ML SYRINGE 1ML IV PRN ×3 (02:14→17:22)
[2019-09-13] MEDS: ONDANSETRON HCL 4 MG/2 ML VIAL IV PRN ×3 (02:14→17:27)
[2019-09-13 06:08] LABS: Basophils # (auto) 0 uL; Eosinophils # (auto) 0 uL; Hemoglobin 12.7 g/dL (13.5-17.5)
[2019-09-13 06:11] LABS: Basophils % (auto) 0.1 % (0.0-2.0); Hematocrit 37.3 % (41.0-53.0); Lymphocytes % (auto) 13.3 % (10.0-50.0); Mean Corpuscular Hemoglobin 27.3 pg (28.0-32.0); Mean Corpuscular Hgb Conc. 34.2 g/dL (32.0-36.0); Mean Corpuscular Volume 79.9 fL (80.0-100.0); Monocytes # (auto) 0.6 uL; Monocytes % (auto) 8.2 % (0.0-12.0); Neutrophils # (auto) 5.9 uL; Neutrophils % (auto) 78.4 % (37.0-80.0); Nucleated Red Blood Cells % 0.1 %; Platelet Count (auto) 169 10^3/uL (140-450); Red Blood Cells 4.67 10^6/uL (4.5-5.90); Red Cell Distribution Width 16.9 % (11.8-14.3); White Blood Cell 7.5 10^3/uL (4.4-10.8)
[2019-09-13 06:17] LABS: BUN/Creatinine Ratio 15.1; Calcium 8.9 mg/dL (8.5-10.1); Potassium 4.4 mmol/L (3.5-5.1)
[2019-09-13] MEDS: LEVOTHYROXINE SODIUM 25 MCG TAB PO SCH (06:31)
--- NOTE | 2019-09-13 07:25 | NUR ---
Opening Shift Note Received report and assumed care of patient. Patient is asleep on initial encounter but easily aroused with name call. No signs or symptoms of distress noted at this time. Instructed patient on plan of care and to call for assistance as needed. Will continue to monitor.
[2019-09-13] MEDS: FAMOTIDINE 20 MG TAB PO SCH ×2 (10:00→22:45)
[2019-09-13] MEDS: VALSARTAN 80 MG TAB PO SCH (10:00)
[2019-09-13] MEDS: CARVEDILOL 3.125 MG TAB PO SCH ×2 (10:00→22:45)
[2019-09-13] MEDS: CLOPIDOGREL BISULFATE 75 MG TAB PO SCH (11:06)
[2019-09-13] MEDS: LEVOFLOXACIN 500MG 100 ML IV SCH (11:06)
[2019-09-13] MEDS: ASPirin 81 mg TAB PO SCH (11:08)
[2019-09-13] MEDS: APIXABAN 5 MG TAB PO SCH ×2 (11:08→22:45)
[2019-09-13] MEDS: RANOLAZINE ER 500 MG TAB PO SCH ×2 (11:20→22:45)
[2019-09-13] MEDS ORDERED: CLOP75TA28 PO (18:03)
[2019-09-13] MEDS ORDERED: MULT-2 PO (18:03)
[2019-09-13] MEDS ORDERED: ASPI81CH43 PO (18:03)
[2019-09-13] MEDS ORDERED: QUET200T30 PO (18:03)
[2019-09-13] MEDS ORDERED: CARV3.1240 PO (18:03)
[2019-09-13] MEDS ORDERED: RANO1000 PO (18:03)
[2019-09-13] MEDS ORDERED: ESCI10TA53 PO (18:03)
[2019-09-13] MEDS ORDERED: LEVO25TA49 PO (18:03)
[2019-09-13] MEDS ORDERED: APIX5TAB PO (18:03)
[2019-09-13] MEDS ORDERED: ALBU1.257 IN (18:03)
[2019-09-13] MEDS ORDERED: VALS1TAB57 PO (18:03)
[2019-09-13] MEDS ORDERED: FAM20T PO (18:03)
--- NOTE | 2019-09-13 19:30 | NUR ---
Orders for discharge. Informed patient, but he is unable to have his or anyone else pick him up this evening. Will notify MD to hold discharge until am. No distress noted at this time
[2019-09-14 05:57] VITALS: BP 143/70
[2019-09-14] MEDS: LEVOTHYROXINE SODIUM 25 MCG TAB PO SCH (06:24)
--- NOTE | 2019-09-14 07:20 | NUR ---
RECEIVED PATIENT FROM [facility] SHIFT RN, ALERT AND ORIENTED X4. DENIES SOB, DENIES PAIN, NO S/S DISTRESS AT THIS TIME. PLAN OF DISCHARGE TODAY DISCUSSED. PATIENT ADVISED TO REQUEST FOR ASSISTANCE PRN. SAFETY MEASURES IN PLACE, BED IN LOW POSITION. CALL LIGHT AND PHONE WITHIN REACH. PATIENT VERBALIZED UNDERSTANDING.
[2019-09-14 08:00] VITALS: BP 135/77
[2019-09-14] MEDS: LEVOFLOXACIN 500MG 100 ML IV SCH (10:00)
[2019-09-14] MEDS: FAMOTIDINE 20 MG TAB PO SCH (10:00)
--- NOTE | 2019-09-14 10:00 | NUR ---
patient refused levaquin antibiotic and pepcid. Awaiting discharge at this time
[2019-09-14] MEDS: APIXABAN 5 MG TAB PO SCH (10:04)
[2019-09-14] MEDS: CLOPIDOGREL BISULFATE 75 MG TAB PO SCH (10:04)
[2019-09-14] MEDS: RANOLAZINE ER 500 MG TAB PO SCH (10:04)
[2019-09-14] MEDS: VALSARTAN 80 MG TAB PO SCH (10:05)
[2019-09-14] MEDS: ASPirin 81 mg TAB PO SCH (10:06)
[2019-09-14] MEDS: CARVEDILOL 3.125 MG TAB PO SCH (10:06)
--- NOTE | 2019-09-14 11:50 | NUR ---
PATIENT DISCHARGED WITH ALL PERTINENT DISCHARGE SUMMARY AND PRESCRIPTION. INSTRUCTED ON IMPORTANCE OF FOLLOW UP WITH CLINICAL INFORMATICIST UPON DISCHARGE. PATIENT DISCHARGED WITH ALL PERSONAL BELONGINGS. REMAINS ALERT AND ORIENTED X4. PATIENT GIVEN BUS PASS UPON DISCHARGE, IV DISCONTINUED AND TELE BOX SENT TO ICU.
== END 2019-09-14 11:50 | disposition home or self-care (01) | DRG 175 ==
LOC: ER 21:08 → TELE 21:09 → TELE-EAST 09-11 05:12
PROVIDERS: ADMIT Nurse Practitioner; ATTEND Internal Medicine Nephrology
PROC: 02703DZ Dilation of Coronary Artery, One Artery with Intraluminal Device, Percutaneous Approach (ICD-10-PCS; principal; 2019-09-12)
PROC: 4A023N7 Measurement of Cardiac Sampling and Pressure, Left Heart, Percutaneous Approach (ICD-10-PCS; 2019-09-12)
PROC: B2111ZZ Fluoroscopy of Multiple Coronary Arteries using Low Osmolar Contrast (ICD-10-PCS; 2019-09-12)
PROC: B2151ZZ Fluoroscopy of Left Heart using Low Osmolar Contrast (ICD-10-PCS; 2019-09-12)
DX: T82.855A Stenosis of coronary artery stent, initial encounter (principal); N17.0 Acute kidney failure with tubular necrosis; E03.9 Hypothyroidism, unspecified; N39.0 Urinary tract infection, site not specified; Z95.5 Presence of coronary angioplasty implant and graft; Z88.0 Allergy status to penicillin; Z91.013 Allergy to seafood; Z88.8 Allergy status to other drugs, medicaments and biological substances; Z91.018 Allergy to other foods; I10 Essential (primary) hypertension; J45.909 Unspecified asthma, uncomplicated; Z83.3 Family history of diabetes mellitus; Z82.49 Family history of ischemic heart disease and other diseases of the circulatory system; Z84.1 Family history of disorders of kidney and ureter; Y83.8 Other surgical procedures as the cause of abnormal reaction of the patient, or of later complication, without mention of misadventure at the time of the procedure; Y92.89 Other specified places as the place of occurrence of the external cause; I25.10 Atherosclerotic heart disease of native coronary artery without angina pectoris
CPT/HCPCS: 36415; 71046; 80048; 80053; 80307; 81001; 83735; 83880; 84443; 84484; 85007; 85025; 85027; 85379; 85610; 85730; 87081; 87086; 92928; 93005; 93458; 96365; 96375; 99152; 99153; C1887; G0378; J1956; J2250; J2405; J3490; Q9967